=== PATIENT | male | born 1960 | race Caucasian/White ===

== ENCOUNTER 2021-01-04 13:15 | Outpatient (CLI) | payer BC, SELFPAY | END 2021-01-04 13:16 | disposition home or self-care (01) | LOC: ANHCOVIDVC 13:15 | DX: Z23 Encounter for immunization (principal) | CPT/HCPCS: 0001A; 91300 ==

== ENCOUNTER 2021-01-25 13:15 | Outpatient (CLI) | payer BC, SELFPAY | END 2021-01-25 13:16 | disposition home or self-care (01) | LOC: ANHCOVIDVC 13:15 | DX: Z23 Encounter for immunization (principal) | CPT/HCPCS: 0002A; 91300 ==